=== PATIENT | male | born 1960 | race Caucasian/White ===

== ENCOUNTER 2017-07-19 13:42 | Emergency (ER) | payer OTHER ==
[~2017-07-19] VITALS: Ht 177.8 cm; Wt 86.6 kg
[~2017-07-19 13:42] MED LIST: ALPRAZOLAM ER1 MG PO; BUSPIRONE HCL10 MG PO; DOLOPHINE HCL10 MG PO; ENDOCET 10-3251 EACH PO; GABAPENTIN 100100 MG; LISINOPRIL5 MG; LISINOPRIL5 MG PO; NEURONTIN 300300 M1; NEURONTIN 300M300 M2 PO; NORCO 5-325 TA1 EAC1 PO; NORVASC 5 MG TAB5 MG PO; OMEPRAZOLE 20 M20 M1 PO; OMEPRAZOLE40 MG; OMEPRAZOLE40 MG PO; OXYCODONE HCL15 MG; POLYMYXIN B/TMP10 ML OP; ROXICODONE15 M1; TIZANIDINE HCL4 M1; TIZANIDINE HCL4 M1 PO; XANAX1 MG; ZANAFLEX4 MG
[2017-07-19] MEDS ORDERED: LISINOPRIL5 MG PO (13:57)
[2017-07-19] MEDS ORDERED: XANAX1 MG PO (13:58)
[2017-07-19] MEDS ORDERED: AMOXICILLIN 50500 MG PO (14:07)
[2017-07-19] MEDS ORDERED: LIDOCAINE VISC100 ML PO (14:08)
[2017-07-19 14:28] VITALS: BP 167/103
== END 2017-07-19 14:29 | disposition home or self-care (01) ==
LOC: M.ERS 13:42
DX: K08.89 Other specified disorders of teeth and supporting structures (principal); G89.29 Other chronic pain; M54.9 Dorsalgia, unspecified; Z91.041 Radiographic dye allergy status

== ENCOUNTER 2018-10-27 14:19 | Emergency (ER) | payer OTHER ==
[~2018-10-27] VITALS: Ht 177.8 cm; Wt 86.6 kg
[~2018-10-27 14:19] MED LIST changes: +AMOXICILLIN 50500 MG PO; +LIDOCAINE VISC100 ML PO; +XANAX1 MG PO
[2018-10-27 14:49] LABS: URINE BILIRUBIN NEGATIVE (Negative); URINE BLOOD NEGATIVE (Negative); URINE CLARITY CLEAR; URINE COLOR YELLOW; URINE GLUCOSE-RANDOM NEGATIVE (Negative); URINE KETONES NEGATIVE (Negative); URINE LEUKOCYTES-REFLEX NEGATIVE (Negative); URINE NITRITE-REFLEX NEGATIVE (Negative); URINE PROTEIN NEGATIVE (Negative); URINE UROBILINOGEN 0.2 E.U./dl (0.2-1.0)
[2018-10-27 15:38] VITALS: BP 185/106
== END 2018-10-27 15:39 | disposition home or self-care (01) ==
LOC: M.ERS 14:19
PROVIDERS: Nurse Practitioner Family
DX: R10.12 Left upper quadrant pain (principal); G89.29 Other chronic pain; M54.9 Dorsalgia, unspecified; H54.40 Blindness, one eye, unspecified eye; H91.92 Unspecified hearing loss, left ear; Z91.041 Radiographic dye allergy status; Z98.890 Other specified postprocedural states

== ENCOUNTER 2019-08-27 09:32 | Emergency (ER) | payer OTHER ==
[~2019-08-27] VITALS: Ht 180.3 cm; Wt 90.7 kg
[2019-08-27] MEDS ORDERED: ZOCOR20 MG PO (09:52)
[2019-08-27 10:16] LABS: ABSOLUTE LYMPHOCYTES 0.8 thou/uL (0.8-5.3); ABSOLUTE MONOCYTES 0.4 thou/uL (0.0-1.2); ABSOLUTE NEUTROPHILS 9.2 thou/uL (1.6-8.1); BASOPHILS 0.5 %; HEMATOCRIT 43.2 % (42.0-52.0); HEMOGLOBIN 15.4 gm/dL (14.0-18.0); MCH 33.3 pg (26.0-34.0); MCHC 35.7 g/dL (28.0-37.0); MCV 93.3 fL (80.0-100.0); MONOCYTES 3.6 %; MPV 7.6 fl. (7.2-11.1); NUCLEATED RBCS 0 /100WBC; PLATELET COUNT* 384 thou/uL (150-400); POLYS 87.9 %; RBC 4.63 mil/uL (4.50-6.00); RDW-CV 13.2 % (10.5-14.5); WBC 10.4 thou/uL (4.0-11.0)
[2019-08-27 10:41] LABS: CALCIUM 8.9 mg/dL (8.5-10.1); CREATININE 1.1 mg/dL (0.6-1.3); POTASSIUM 3.3 mmol/L (3.5-5.1)
[2019-08-27 10:46] LABS: ALBUMIN 4.8 g/dL (3.4-5.0); TOTAL BILIRUBIN 0.6 mg/dL (<0.1-1.0); TOTAL PROTEIN 8.5 g/dL (6.4-8.2)
[2019-08-27 11:56] LABS: URINE BILIRUBIN NEGATIVE (Negative); URINE BLOOD NEGATIVE (Negative); URINE CLARITY CLEAR; URINE COLOR YELLOW; URINE GLUCOSE-RANDOM NEGATIVE (Negative); URINE LEUKOCYTES-REFLEX NEGATIVE (Negative); URINE NITRITE-REFLEX NEGATIVE (Negative); URINE PROTEIN NEGATIVE (Negative); URINE SPECIFIC GRAVITY 1.015 (1.005-1.030)
[2019-08-27 11:58] LABS: URINE KETONES 3+ (Negative)
[2019-08-27 12:52] VITALS: BP 140/90
--- NOTE | 2019-08-27 16:08 | EKG ---
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[place] : 1960 Requested By: Alfonzo Dockery Order Number: [id number] MD: Haroon Langston Measurements Intervals [place] Rate: 97 P: 38 MT: 148 QRS: 17 QRSD: 111 T: -89 QT: 364 QTc: 463 Interpretive Statements Sinus rhythm Probable left atrial enlargement Inferior infarct, 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
== END 2019-08-27 12:52 | disposition home or self-care (01) ==
LOC: M.ERS 09:32
PROVIDERS: Emergency Medicine Emergency Medical Services
DX: R10.32 Left lower quadrant pain (principal); I10 Essential (primary) hypertension; F41.9 Anxiety disorder, unspecified; G89.29 Other chronic pain; H53.8 Other visual disturbances; R31.9 Hematuria, unspecified; R20.2 Paresthesia of skin; Z79.899 Other long term (current) drug therapy; Z88.8 Allergy status to other drugs, medicaments and biological substances

== ENCOUNTER → 2019-12-30 | Outpatient (CLI) | payer OTHER ==
[~2019-12-30] MED LIST changes: +ZOCOR20 MG PO
== END ==
LOC: M.RAD 10:03
PROVIDERS: ATTEND Internal Medicine
DX: R07.89 Other chest pain (principal)

== ENCOUNTER → 2020-10-18 | Outpatient (CLI) | payer OTHER | LOC: M.RAD 14:59 | PROVIDERS: ATTEND Internal Medicine | DX: I10 Essential (primary) hypertension (principal) ==